=== PATIENT | female | born 1930 | race Two or more races ===

== ENCOUNTER 2020-04-26 12:11 | Inpatient (IN) | payer MEDICARE, MEDICAID ==
[~2020-04-26] VITALS: Ht 170.2 cm; Wt 68.0 kg
[2020-04-26] MEDS: PIPERACILLIN /TAZOBACTAM 3.375 G in IV D5W 50 ML IV SCH (01:00)
--- NOTE | 2020-04-26 12:20 | NUR ---
BIBPA, C/O L FOOT DISCOLORATION X 15 DAYS. VS CHECKED. + COVID PER [facility] REPORT. AWAITING MD BALLESTEROS.
--- NOTE | 2020-04-26 12:44 | NUR ---
CALLED DR. FAITH [phone] [facility] 0
[2020-04-26] MEDS ORDERED: MORPHINE SULFATE INJ 2 MG/ML DISP.SYRIN IV ONE (14:00)
[2020-04-26 14:04] LABS: CREATININE 1.2 mg/dL (0.6-1.3); POTASSIUM 4.5 mmol/L (3.5-5.1)
[2020-04-26] MEDS ORDERED: MORPHINE SULFATE INJ 4 MG/ML DISP.SYRIN ONE (14:12)
[2020-04-26 14:29] LABS: BASOPHILS # (AUTO) 0.1 /CMM (0.0-0.2); HEMOGLOBIN 17.4 g/dL (11.5-14.8); LYMPHOCYTES # (AUTO) 1.8 /CMM (0.8-4.8); NEUTROPHILS # (AUTO) 14.6 /CMM (1.8-8.9)
[2020-04-26 14:32] LABS: BASOPHILS % (AUTO) 0.7 % (0.0-2.0); EOSINOPHILS % (AUTO) 0.5 % (0.0-6.0); HEMATOCRIT 53 % (33-45); MEAN CORPUSCULAR HGB CONC 33 g/dl (31.0-36.0); MEAN CORPUSCULAR VOLUME 97 fL (82-100); MONOCYTES # (AUTO) 1.3 /CMM (0.1-1.30); MONOCYTES % (AUTO) 7.3 % (2.0-12.0); NEUTROPHILS % (AUTO) 81.5 % (43.0-81.0); PLATELET COUNT (AUTO) 351 /CMM (150-450); RED BLOOD CELL COUNT(AUTO) 5.51 MIL/uL (4.0-5.2); WHITE BLOOD COUNT (AUTO) 17.9 K/uL (4.3-11.0)
--- NOTE | 2020-04-26 15:36 | NUR ---
CALLED DR. FAITH [phone] [facility]
--- NOTE | 2020-04-26 16:04 | NUR ---
paged Josh Alejandro NP for panel admission
[2020-04-26] MEDS ORDERED: IV NS 0.9% 1,000 ML IV ONE (16:30)
[2020-04-26] MEDS ORDERED: JENTADUETO PO (16:36)
[2020-04-26] MEDS ORDERED: BISA10SU11 RC (16:36)
[2020-04-26] MEDS ORDERED: NA P133E RC (16:36)
[2020-04-26] MEDS ORDERED: AMLO10TA4 PO (16:36)
[2020-04-26] MEDS ORDERED: GUAI100S11 PO (16:36)
[2020-04-26] MEDS ORDERED: GABA-532 PO (16:36)
[2020-04-26] MEDS ORDERED: METH750T3 PO (16:36)
[2020-04-26] MEDS ORDERED: IBUP-1953 PO (16:36)
[2020-04-26] MEDS ORDERED: OLME20TA13 PO (16:36)
[2020-04-26] MEDS ORDERED: MEMA10TA PO (16:36)
[2020-04-26] MEDS ORDERED: DONE10TA44 PO (16:36)
[2020-04-26] MEDS ORDERED: NETA2.5D3 EACHEYE (16:36)
[2020-04-26] MEDS ORDERED: DORZ10DR13 EACHEYE (16:36)
[2020-04-26] MEDS ORDERED: LEVO100T9 PO (16:36)
[2020-04-26] MEDS ORDERED: MAGN400O6 PO (16:36)
[2020-04-26] MEDS ORDERED: ACET1TAB23 PO (16:36)
[2020-04-26] MEDS ORDERED: DOCU250C14 PO (16:36)
[2020-04-26] MEDS ORDERED: MULT-447 PO (16:36)
[2020-04-26] MEDS ORDERED: CALC500T13 PO (16:36)
[2020-04-26] MEDS ORDERED: BENEFIBER PO (16:36)
[2020-04-26] MEDS ORDERED: ASPI-1169 PO (16:36)
--- NOTE | 2020-04-26 19:10 | NUR ---
RECIEVED REPORT FROM [facility]. PT WAS BROUGHT TO ER ROOM 3 C/O OF COOL AND DISCOLORED LEFT FOOT X15 DAYS. PER SNF, PT IS COVID POSITIVE. PT IS A&OX4, [place] SPEAKING. FOOT IS A DARK BLUE AND COLD TO THE TOUCH. PT DENIES PAIN IN HER FOOT. PT BREATHING EVENLY AND UNLABORED. PT RESTING COMFORTABLY, HOOKED TO THE MONITOR AND POX, CALL LIGHT WITHIN REACH. WILL CONTINUE TO MONITOR.
[2020-04-26] MEDS ORDERED: HEPARIN INFUSION/D5W 500 ML IV PRN (20:30)
[2020-04-26] MEDS ORDERED: BISACODYL SUPP (10 MG) 10 MG/SUPP.RECT SUPP.RECT RC PRN (20:30)
[2020-04-26] MEDS ORDERED: IBUPROFEN 400 MG TABLET PO PRN (20:30)
[2020-04-26] MEDS ORDERED: IV NS 0.9% 1,000 ML IV PRN (21:00)
[2020-04-26] MEDS ORDERED: Z GUARD REMEDY 2 OZ OINT TP PRN (21:00)
[2020-04-26] MEDS ORDERED: ONDANSETRON HCL/PF 4 MG/2 ML VIAL IVP PRN (21:00)
[2020-04-26] MEDS ORDERED: HYDROCODONE/APAP 5/325MG TABLET PO PRN (21:00)
[2020-04-26] MEDS ORDERED: ACETAMINOPHEN 325 MG TABLET PO PRN (21:00)
--- NOTE | 2020-04-26 22:33 | NUR ---
PER AMISHA PENNY TO ORDER BLOOD CULTURES PRIOR TO ANTIBIOTIC ADMINISTRATION
[2020-04-26] MEDS: DONEPEZIL 5 MG TABLET PO SCH (22:35)
--- NOTE | 2020-04-26 23:25 | NUR ---
COMPLAINT SUPERVISOR AT BEDSIDE FOR BLOOD CULTURE DRAW
[2020-04-26] MEDS: VANCOMYCIN HCL 0.75 GM in IV D5W 250 ML IV SCH (23:48)
--- NOTE | 2020-04-27 06:12 | NUR ---
COVID SWAB SENT
[2020-04-27] MEDS: PIPERACILLIN /TAZOBACTAM 3.375 G in IV D5W 50 ML IV SCH ×3 (06:25→18:13)
[2020-04-27] MEDS ORDERED: HYDROCODONE/APAP 5/325MG TABLET ONE (08:25)
[2020-04-27] MEDS ORDERED: DOCUSATE SODIUM LIQ 100 MG/10 ML UDC ONE (08:25)
[2020-04-27] MEDS ORDERED: AMLODIPINE BESYLATE 5 MG TABLET ONE (08:25)
[2020-04-27] MEDS ORDERED: ASPIRIN EC 81 MG TABLET.DR PO ONE (08:25)
[2020-04-27] MEDS ORDERED: LOSARTAN POTASSIUM 25 MG TABLET ONE (08:26)
[2020-04-27] MEDS ORDERED: GABAPENTIN 300 MG CAPSULE ONE ×2 (08:26→18:12)
[2020-04-27] MEDS ORDERED: PANTOPRAZOLE 40 MG TABLET.DR PO ONE (08:26)
[2020-04-27] MEDS: LEVOTHYROXINE SODIUM 100 MCG TABLET PO SCH (08:30)
[2020-04-27] MEDS: PANTOPRAZOLE 40 MG TABLET.DR PO SCH (08:30)
[2020-04-27] MEDS: MEMANTINE HCL 5 MG TABLET PO SCH ×3 (08:55→18:00)
[2020-04-27] MEDS: GABAPENTIN 100 MG CAPSULE PO SCH ×3 (08:55→18:00)
[2020-04-27] MEDS: LOSARTAN POTASSIUM 50 MG TABLET PO SCH ×2 (08:55→09:00)
[2020-04-27] MEDS: ASPIRIN 81 MG TAB.CHEW PO SCH ×2 (08:55→09:00)
[2020-04-27] MEDS: AMLODIPINE BESYLATE 5 MG TABLET PO SCH ×2 (08:55→09:00)
[2020-04-27] MEDS: DOCUSATE SODIUM 250 MG CAPSULE PO SCH ×2 (08:55→09:00)
--- NOTE | 2020-04-27 08:59 | NUR ---
riaz by bedside trying to draw ptt and am labs, but pt is a hard stick will come back and send another tech
[2020-04-27] MEDS: TIMOLOL MAL/DORZOLAM HCL OPHTH 10 ML BOTTLE EACHEYE SCH ×2 (09:00→18:00)
--- NOTE | 2020-04-27 09:00 | NUR ---
dr bonner by bedside, per dr bonner hold all am meds. do not give . keep npo. pt will be having a abdominal aortic aortogram
--- NOTE | 2020-04-27 09:10 | NUR ---
asked dr bonner if he still wants heparin drip to be continued. per dr bonner, hold heparin drip for now since he will perform procedure on the pt today (abd aortic angiogram). stated this will be better for the pt since this will cause less bleeding.
--- NOTE | 2020-04-27 09:15 | NUR ---
pt was complaining of pain. but per dr bonner hold all am meds. [facility] [facility] unable to give. d/t npo status. [place] [place] wasted with joel kim.
--- NOTE | 2020-04-27 09:16 | NUR ---
consent obtained for abdominal aortic angiogram with runoff and possible interventioon with moderate sedation from daughter bettye carlisle. verified with joel kim via phone. dr. bonner was also on the phone with daughter explaining procedure and obtaining consent.
[2020-04-27] MEDS ORDERED: IODIXANOL 300 ML IV ONE (09:23)
[2020-04-27] MEDS ORDERED: IV NS 0.9% 1,000 ML ONE (09:23)
[2020-04-27 09:54] LABS: BASOPHILS # (AUTO) 0.3 /CMM (0.0-0.2); BASOPHILS % (AUTO) 1.6 % (0.0-2.0); EOSINOPHILS % (AUTO) 0.8 % (0.0-6.0); HEMATOCRIT 52 % (33-45); HEMOGLOBIN 16.6 g/dL (11.5-14.8); LYMPHOCYTES # (AUTO) 1.6 /CMM (0.8-4.8); LYMPHOCYTES % (AUTO) 8.5 % (20.0-44.0); MEAN CORPUSCULAR HGB CONC 32 g/dl (31.0-36.0); MEAN CORPUSCULAR VOLUME 98 fL (82-100); MONOCYTES % (AUTO) 5.5 % (2.0-12.0); NEUTROPHILS # (AUTO) 15.4 /CMM (1.8-8.9); NEUTROPHILS % (AUTO) 83.6 % (43.0-81.0); PLATELET COUNT (AUTO) 359 /CMM (150-450); RED BLOOD CELL COUNT(AUTO) 5.34 MIL/uL (4.0-5.2); WHITE BLOOD COUNT (AUTO) 18.4 K/uL (4.3-11.0)
[2020-04-27 10:22] LABS: ALBUMIN 2.3 g/dL (3.4-5.0); CALCIUM, SERUM 8.2 mg/dL (8.5-10.1); CREATININE 1.3 mg/dL (0.6-1.3); MAGNESIUM 2.3 mg/dL (1.8-2.4); PHOSPHORUS 3.3 mg/dL (2.5-4.9); POTASSIUM 3.9 mmol/L (3.5-5.1); TOTAL PROTEIN, SERUM 7.7 g/dL (6.4-8.2)
--- NOTE | 2020-04-27 13:41 | NUR ---
[facility] UPDATED REGARDING PT
--- NOTE | 2020-04-27 14:30 | NUR ---
called laborer adjustable steel joist and dr bonner, per and laborer adjustable steel joist, procedure is cancelled because pt is covid positive and that hospital is unable to do procedure d/t high risk for exposure and d/t absence of icu beds at the moment.
--- NOTE | 2020-04-27 14:35 | NUR ---
dr irby made aware regarding the procedure being cancelled. asked md if we still need to start heparin drip, per md, no need to start, pt will be d/cd back to sn[facility] today.
--- NOTE | 2020-04-27 14:36 | NUR ---
per dr irby dc heparin drleeroy pt will dc back to snf today
[2020-04-27] MEDS: VANCOMYCIN HCL 0.75 GM in IV D5W 250 ML IV SCH (16:00)
--- NOTE | 2020-04-27 16:27 | NUR ---
DORIS TAYLOR PHONE#[phone] ETA 1800
--- NOTE | 2020-04-27 16:30 | NUR ---
per sergey irby he will put d/c orders and dc summary
--- NOTE | 2020-04-27 17:56 | NUR ---
called [employer] for report x2, but nobody is picking up. phone just keeps ringing.
--- NOTE | 2020-04-27 18:04 | NUR ---
report given to hilario kim at [facility] for heriberto
--- NOTE | 2020-04-27 18:37 | NUR ---
called and sent message to sergey irby for d/c orders
--- NOTE | 2020-04-27 18:54 | NUR ---
PREMA CASILLAS. BAKERY MACHINE MECHANIC SUPERVISOR.
--- NOTE | 2020-04-27 18:57 | NUR ---
CALL FROM MELINDA HENDRICKSON, SHE SAID THAT THEY CAN NOT ACCEPT THE PATIENT AT THIS HEATHER, FOR FURTHER INFO. TO CALL THE DON AT [phone]
--- NOTE | 2020-04-27 19:09 | NUR ---
RESUMED CARE FROM [facility]. PT RESTING COMFORTABLY IN BED. PT IS NOT COMPLAINING OF PAIN. PT HAS 22G IN RT HAND. PT GIVEN EXTRA BLANKET AND HOOKED ONTO THE MONITOR AND POX, CALL LIGHT WITHIN REACH. WILL CONTINUE TO MONITOR.
--- NOTE | 2020-04-27 19:20 | NUR ---
report given to ramy kim for heriberto
[2020-04-27] MEDS ORDERED: APIX5TAB PO (21:49)
[2020-04-27] MEDS: DONEPEZIL 5 MG TABLET PO SCH (21:50)
--- NOTE | 2020-04-27 21:53 | NUR ---
PER HEATHER LUDWIG DNP PT OK TO BE DISCHARGE BACK TO [facility]. PER HEATHER LUDWIG DNP HE SPOKE TO VANI CASILLAS (ADMISSION DIRECTOR) REGARDING DISCHARGE BACK TO FACILITY AND ACCEPTED PT.. WILL CALL AMBULANCE TRANSPORT.
--- NOTE | 2020-04-27 22:08 | NUR ---
CALLED [facility] FOR TRANSPORTATION. NO AMBULANCE AVAILABLE AT THIS TIME
--- NOTE | 2020-04-27 22:10 | NUR ---
CALLED [facility] FOR TRANSPORTATION ETA 30MINUTES TRIP #[phone]
--- NOTE | 2020-04-27 22:50 | NUR ---
PER DR HEATHER LUDWIG, PT IS MEDICALLY CLEARED FOR DC. Patient discharged to home in stable condition. Written and verbal after care instructions given. Patient verbalizes understanding of instruction. REPORT GIVEN TO AMBULANCE. PT TRANSFERRED TO [facility] IN STABLE CONDITION. IV removed. Catheter intact and site benign. Pressure and 4x4 applied to site. No bleeding noted.
[2020-04-27 23:12] VITALS: BP 121/56
== END 2020-04-27 22:50 | DRG 299 ==
LOC: ER 12:13 → TRANSITION 17:49
PROVIDERS: ADMIT Nurse Practitioner Acute Care; ATTEND Nurse Practitioner Acute Care
DX: E11.51 Type 2 diabetes mellitus with diabetic peripheral angiopathy without gangrene (principal); N17.0 Acute kidney failure with tubular necrosis; I50.32 Chronic diastolic (congestive) heart failure; E87.1 Hypo-osmolality and hyponatremia; I11.0 Hypertensive heart disease with heart failure; F03.90 Unspecified dementia, unspecified severity, without behavioral disturbance, psychotic disturbance, mood disturbance, and anxiety; Z82.49 Family history of ischemic heart disease and other diseases of the circulatory system; Z79.82 Long term (current) use of aspirin; Z79.899 Other long term (current) drug therapy; D72.829 Elevated white blood cell count, unspecified; E03.9 Hypothyroidism, unspecified; E78.5 Hyperlipidemia, unspecified; Z86.19 Personal history of other infectious and parasitic diseases
CPT/HCPCS: 36415; 71045-TC; 80048-TC; 80053-TC; 80061-TC; 83605-TC; 83735-TC; 84100-TC; 85025-TC; 85610-TC; 85730-TC; 87040-TC; G0378; J1644; J2270; J2543; J3370; J7030; J7060; Q9967; U0003